=== PATIENT | female | born 1970 | race Caucasian/White ===

== ENCOUNTER → 2018-01-07 | Outpatient (CLI) | payer OTHER ==
[~2018-01-07] MED LIST: ALBIPROI INH; ALBU90OI; ALBU90OI6 INH; AMOX500 PO; AZIT250 PO; AZIT500 PO; BECL40OI; BIRTH CONTROL; BUPR100 PO; CETI10 PO; CIPR250 PO; CITA20 PO; CODGUAEL PO; CYCL10 PO; DAYQUIL; DESL5; DOCU100 PO; DOXY100 PO; FASTIN; FEXPSEER; FLUO10 PO; FLUT220OIA; HYDACE5 PO; HYDGUAL120 PO; MAGCIT300 PO; MEDR150I IM; METF500 PO; METO10 PO; MONT10T; Mucinex600 MG PO; NAPR500 PO; Naprosyn500 MG PO; Norco 5-325 Ta1 EACH PO; OXYACE5T PO; PRED10 PO; PRED20 PO; PROM25 PO; PROZAC20 MG PO; Pepcid40 MG PO; Percocet 5-3251 EACH PO; RABE20 PO; RXOXYACE PO; SERT50; SUCR1 PO
[2018-01-07 17:57] LABS: Bilirubin, Urine Neg (Neg); Blood, Urine Neg (Neg); Glucose Qualitative, Urine Neg (Neg); Ketones, Urine Neg (Neg); Leukocyte Esterase, Urine Neg (Neg); Nitrite, Urine Neg (Neg); Protein, Urine Neg (Neg); Urobilinogen, Urine NORM (Normal)
[2018-01-07 18:03] LABS: Appearance, Urine Clear (Clear); Color, Urine Yellow (P-Yellow)
== END | disposition home or self-care (01) ==
LOC: LAB SHORT 17:14 → LAB 17:14
PROVIDERS: Nurse Practitioner Family
DX: R30.0 Dysuria (principal)
CPT/HCPCS: 81003

== ENCOUNTER 2018-06-18 08:24 | Emergency (ER) | payer OTHER ==
[~2018-06-18] VITALS: Ht 172.7 cm; Wt 136.1 kg
[2018-06-18 09:55] LABS: BASOPHILS ABSOLUTE AUTO 0.06 K/mm3 (0.00-0.23); BASOPHILS PERCENT AUTO 1 % (0-2); EOSINOPHILS ABSOLUTE AUTO 0.65 K/mm3 (0.00-0.68); EOSINOPHILS PERCENT AUTO 8 % (0-6); Hematocrit 44.4 % (33.0-51.0); Hemoglobin 15.1 g/dL (11.5-16.0); IMMATURE GRAN ABSOLUTE AUTO 0.02 K/mm3 (0.00-0.10); IMMATURE GRAN PERCENT AUTO 0 % (0-1); LYMPHOCYTES ABSOLUTE AUTO 2.47 K/mm3 (0.84-5.20); LYMPHOCYTES PERCENT AUTO 29 % (21-46); MONOCYTES ABSOLUTE AUTO 0.72 K/mm3 (0.16-1.47); MONOCYTES PERCENT AUTO 8 % (4-13); Mean Corpuscular Volume 91 fL (80-100); Mean Platelet Volume 11.1 fL (9.1-12.4); NEUTROPHILS ABSOLUTE AUTO 4.64 K/mm3 (1.96-9.15); NEUTROPHILS PERCENT AUTO 54 % (41-73); Platelet Count 242 K/mm3 (150-400); RDW Coefficient Variation 12.9 % (11.7-14.2); RDW Standard Deviation 42.8 fL (35.1-46.3); Red Blood Cell Count 4.87 M/mm3 (3.80-5.20); White Blood Cell Count 8.56 K/mm3 (4.00-11.30)
[2018-06-18 10:14] LABS: Alanine Aminotransfer (ALT/SGP 19 U/L (12-78); Albumin, Blood 3.1 g/dL (3.4-5.0); Albumin/Globulin Ratio 0.7 (0.8-1.8); Alk Phos 67 U/L (50-136); Anion Gap 10 mmol/L (6-16); Aspartate Aminotrans (AST/SGOT 12 U/L (12-37); Bilirubin, Total 0.5 mg/dL (0.1-1.0); Blood Urea Nitrogen 11 mg/dL (8-24); Bun/Creatinine Ratio 16.9 (12.0-20.0); CO2, Blood 24 mmol/L (21-32); Calcium, Blood 8.4 mg/dL (8.5-10.1); Chloride, Blood 107 mmol/L (98-108); Creatinine, Blood 0.65 mg/dL (0.40-1.00); Globulin, Blood 4.5 g/dL (2.2-4.0); Glomerular Filtration Rate >60 (60-); Glucose, Blood 102 mg/dL (70-99); Potassium, Blood 3.6 mmol/L (3.5-5.5); Sodium, Blood 141 mmol/L (136-145); Total Protein, Blood 7.6 g/dL (6.4-8.2)
[2018-06-18 10:23] LABS: Source, Urine Clean Catch
[2018-06-18 10:31] LABS: Bilirubin, Urine Neg (Neg); Blood, Urine Neg (Neg); Glucose Qualitative, Urine 1+ (Neg); Ketones, Urine Neg (Neg); Leukocyte Esterase, Urine 1+ (Neg); Nitrite, Urine Neg (Neg); Protein, Urine 2+ (Neg); Urobilinogen, Urine NORM (Normal)
[2018-06-18 10:50] LABS: Appearance, Urine Clear (Clear); Color, Urine Yellow (P-Yellow); Mucus Light (0-Heavy); Squamous Epithelial Cells Mod /hpf (Few)
[2018-06-18 10:52] LABS: Bacteria Rare /hpf
== END 2018-06-18 11:00 | disposition home or self-care (01) ==
LOC: ER 08:24
PROVIDERS: Emergency Medicine
DX: R10.13 Epigastric pain (principal); H92.01 Otalgia, right ear; R53.83 Other fatigue; R53.81 Other malaise; K21.9 Gastro-esophageal reflux disease without esophagitis; Z87.442 Personal history of urinary calculi; Z79.899 Other long term (current) drug therapy
CPT/HCPCS: 36415; 80053; 81001; 81025; 84443; 85025; 87086; J1885; J7030

== ENCOUNTER 2019-02-07 10:18 | Emergency (ER) | payer OTHER ==
[~2019-02-07] VITALS: Ht 172.7 cm; Wt 131.1 kg
[2019-02-07] MEDS ORDERED: PARO10 PO (10:42)
[2019-02-07] MEDS ORDERED: Sudogest30 MG PO (10:47)
[2019-02-07] MEDS ORDERED: Flonase 0.05% N16 GM (10:47)
[2019-02-07] MEDS ORDERED: Amoxicillin500 MG PO (10:47)
== END 2019-02-07 10:51 | disposition home or self-care (01) ==
LOC: ER 10:18
DX: K04.7 Periapical abscess without sinus (principal); H65.93 Unspecified nonsuppurative otitis media, bilateral; Z79.899 Other long term (current) drug therapy; K21.9 Gastro-esophageal reflux disease without esophagitis
CPT/HCPCS: 99283

== ENCOUNTER 2021-01-04 15:54 | Emergency (ER) | payer OTHER ==
[~2021-01-04] VITALS: Ht 170.2 cm; Wt 133.8 kg
[~2021-01-04 15:54] MED LIST changes: +Amoxicillin500 MG PO; +Augmentin 875-1 EACH PO; +Flonase 0.05% N16 GM; +PARO10 PO; +Sudogest30 MG PO; +Sudogest60 MG PO
== END 2021-01-04 17:36 | disposition home or self-care (01) ==
LOC: ER 15:54
DX: M76.62 Achilles tendinitis, left leg (principal); K21.9 Gastro-esophageal reflux disease without esophagitis; Z87.442 Personal history of urinary calculi
CPT/HCPCS: 73630; 76882; 93971; 99284-25; A9270

== ENCOUNTER → 2021-02-09 | Outpatient (CLI) | payer OTHER ==
[~2021-02-09] MED LIST changes: +ATOR20 PO; +BUPROPION XL150 M1 PO; +LISINOPRIL-HCT1 EAC1 PO; +ONDA4ODT MM; +PARO30 PO; +Roxicodone5 MG PO; +ZANAFLEX4 M5 PO
[2021-02-15 15:09] LABS: CHLAMYDIA BY NAA Negative (Negative); GONOCOCCUS BY NAA Negative (Negative); HPV 16 Negative (Negative); HPV 18 Negative (Negative); HPV OTHER HR TYPES Positive (Negative); TRICH VAG BY NAA Negative (Negative)
== END ==
LOC: LAB 09:15 → LAB SHORT 09:15
PROVIDERS: Nurse Practitioner Family
DX: Z01.419 Encounter for gynecological examination (general) (routine) without abnormal findings (principal)
CPT/HCPCS: 87491; 87591; 87624; 87625; 87661; G0123

== ENCOUNTER 2021-03-15 11:59 | Emergency (ER) | payer OTHER ==
[~2021-03-15] VITALS: Ht 172.7 cm; Wt 138.8 kg
[~2021-03-15 11:59] MED LIST changes: -ATOR20 PO; -BUPROPION XL150 M1 PO; -LISINOPRIL-HCT1 EAC1 PO; -ONDA4ODT MM; -PARO30 PO; -Roxicodone5 MG PO; -ZANAFLEX4 M5 PO
[2021-03-15] MEDS ORDERED: ATOR20 PO (12:14)
[2021-03-15] MEDS ORDERED: CYCL10 PO (12:14)
[2021-03-15] MEDS ORDERED: PARO30 PO (12:14)
[2021-03-15] MEDS ORDERED: BUPROPION XL150 M1 PO (12:15)
[2021-03-15] MEDS ORDERED: LISINOPRIL-HCT1 EAC1 PO (12:15)
[2021-03-15] MEDS ORDERED: ZANAFLEX4 M5 PO (12:15)
[2021-03-15] MEDS ORDERED: Roxicodone5 MG PO ×2 (13:45→13:46)
[2021-03-15] MEDS ORDERED: ONDA4ODT MM ×2 (13:45→13:46)
== END 2021-03-15 14:32 | disposition home or self-care (01) ==
LOC: ER 11:59
DX: S01.81XA Laceration without foreign body of other part of head, initial encounter (principal); I10 Essential (primary) hypertension; K21.9 Gastro-esophageal reflux disease without esophagitis; Z79.899 Other long term (current) drug therapy; V49.40XA Driver injured in collision with unspecified motor vehicles in traffic accident, initial encounter; Y92.410 Unspecified street and highway as the place of occurrence of the external cause
CPT/HCPCS: 70450; 72125; 99284-25; A9270

== ENCOUNTER 2021-10-11 10:06 | Emergency (ER) | payer OTHER ==
[~2021-10-11] VITALS: Ht 172.7 cm; Wt 136.1 kg
[~2021-10-11 10:06] MED LIST changes: +ATOR20 PO; +BUPROPION XL150 M1 PO; +LISINOPRIL-HCT1 EAC1 PO; +ONDA4ODT MM; +PARO30 PO; +Roxicodone5 MG PO; +ZANAFLEX4 M5 PO
[2021-10-11] MEDS ORDERED: Norco 5-325 Ta1 EACH PO (10:20)
== END 2021-10-11 10:30 | disposition home or self-care (01) ==
LOC: ER 10:06
DX: M25.512 Pain in left shoulder (principal); I10 Essential (primary) hypertension; K21.9 Gastro-esophageal reflux disease without esophagitis; Z79.899 Other long term (current) drug therapy
CPT/HCPCS: 99283

== ENCOUNTER 2022-08-16 20:51 | Emergency (ER) | payer OTHER ==
[~2022-08-16] VITALS: Ht 172.7 cm; Wt 149.2 kg
[2022-08-17] MEDS ORDERED: MELOXICAM5 MG PO (01:35)
== END 2022-08-17 01:46 | disposition home or self-care (01) ==
LOC: ER 20:51
DX: G89.29 Other chronic pain (principal); M54.50 Low back pain, unspecified; K21.9 Gastro-esophageal reflux disease without esophagitis; I10 Essential (primary) hypertension; Z79.899 Other long term (current) drug therapy
CPT/HCPCS: 72100; A9270; J1885

== ENCOUNTER → 2023-10-09 | Outpatient (CLI) | payer OTHER ==
[~2023-10-09] MED LIST changes: +MELOXICAM5 MG PO
[2023-10-25 11:58] LABS: Stool Occult Bld Immuno 1 Negative (NEGATIVE)
== END ==
LOC: LAB 12:00 → LAB SHORT 12:00
PROVIDERS: Family Medicine
DX: Z12.11 Encounter for screening for malignant neoplasm of colon (principal)
CPT/HCPCS: G0328

== ENCOUNTER 2025-04-21 16:48 | Emergency (ER) | payer OTHER ==
[~2025-04-21] VITALS: Ht 167.6 cm; Wt 112.5 kg
[2025-04-21 17:10] VITALS: BP 166/97
[2025-04-21 18:25] LABS: BASOPHILS ABSOLUTE AUTO 0.07 K/mm3 (0.00-0.23); BASOPHILS PERCENT AUTO 1 % (0-2); EOSINOPHILS ABSOLUTE AUTO 0.75 K/mm3 (0.00-0.68); EOSINOPHILS PERCENT AUTO 10 % (0-6); Hematocrit 44.2 % (33.0-51.0); Hemoglobin 14.9 g/dL (11.5-16.0); IMMATURE GRAN ABSOLUTE AUTO 0.01 K/mm3 (0.00-0.10); IMMATURE GRAN PERCENT AUTO 0 % (0-1); LYMPHOCYTES ABSOLUTE AUTO 3.48 K/mm3 (0.84-5.20); LYMPHOCYTES PERCENT AUTO 45 % (21-46); MONOCYTES ABSOLUTE AUTO 0.62 K/mm3 (0.16-1.47); MONOCYTES PERCENT AUTO 8 % (4-13); Mean Corpuscular HGB Conc 33.7 g/dL (31.5-36.5); Mean Corpuscular Volume 94 fL (80-100); NEUTROPHILS ABSOLUTE AUTO 2.86 K/mm3 (1.96-9.15); NEUTROPHILS PERCENT AUTO 37 % (41-73); NRBC ABSOLUTE 0.00 K/mm3 (0.00-0.02); NRBC Auto 0.0 /100 WBC (0.0-0.2); Platelet Count 318 K/mm3 (150-400); RDW Coefficient Variation 12.7 % (11.7-14.2); RDW Standard Deviation 43.6 fL (35.1-46.3)
[2025-04-21 18:52] LABS: Alanine Aminotransfer (ALT/SGP 24.0 U/L (12-78); Albumin, Blood 3.2 g/dL (3.4-5.0); Albumin/Globulin Ratio 0.8 (0.8-1.8); Anion Gap 5.0 mmol/L (3-11); Aspartate Aminotrans (AST/SGOT 13.0 U/L (12-37); Bilirubin, Total 0.7 mg/dL (0.1-1.0); Blood Urea Nitrogen 11.0 mg/dL (8-24); CO2, Blood 31.0 mmol/L (21-32); Calcium, Blood 8.5 mg/dL (8.5-10.1); Chloride, Blood 104.0 mmol/L (98-108); Creatinine, Blood 0.62 mg/dL (0.40-1.00); Globulin, Blood 3.9 g/dL (2.2-4.0); Glucose, Blood 103.0 mg/dL (70-99); Magnesium, Blood 1.9 mg/dL (1.6-2.4); Potassium, Blood 3.6 mmol/L (3.5-5.5); Sodium, Blood 136.0 mmol/L (136-145); Total Protein, Blood 7.1 g/dL (6.4-8.2)
[2025-04-21] MEDS ORDERED: FURO20 PO (21:09)
== END 2025-04-21 21:19 | disposition home or self-care (01) ==
LOC: ER 16:48
PROVIDERS: Emergency Medicine
DX: R60.0 Localized edema (principal); R06.02 Shortness of breath; K21.9 Gastro-esophageal reflux disease without esophagitis; I10 Essential (primary) hypertension; Z79.899 Other long term (current) drug therapy
CPT/HCPCS: 71045; 80053; 83735; 83880; 85025; 85651; 86140; 93005; 93010; 99285-25